=== PATIENT | male | born 1950 | race Hispanic/Latino ===

== ENCOUNTER 2020-11-03 12:30 | Observation (INO) | payer MEDICARE ==
[2020-11-03 13:25] LABS: Calcium 9.4 mg/dL (7.8-10.44); Chloride 103 mmol/L (98-107); Potassium 4.4 mmol/L (3.5-5.1); Sodium 138 mmol/L (136-145)
[2020-11-03] MEDS ORDERED: Nitroglycerin 0.4 MG TAB 1 EACH ONE (13:30)
[2020-11-03 13:36] LABS: Mean Corpuscular Hemoglobin 29.8 pg (27.0-33.0); Mean Corpuscular Volume 87.5 fl (81.2-95.1); Mean Platelet Volume 10.8 fl (7.4-10.4); Platelet Count 193 10x3/uL (150-450); RBC Distribution Width 12.7 % (11.5-14.5); Red Blood Cell (RBC) Count 5.04 10x6/uL (4.32-5.72)
[2020-11-03 13:37] LABS: #Eosinphils 0.1 10x3/uL (0.0-0.5); #Monocytes 0.5 10x3/uL (0.0-1.1); #Neutrophils 7.1 10x3/uL (1.5-8.4); %Basophils 0.3 % (0.0-2.0); %Eosinophils 0.7 % (0.0-6.0); %Lymphocytes 14.5 % (18.0-47.0); %Monocytes 5.2 % (0.0-10.0); %Neutrophils 78.7 % (40.0-75.0)
[2020-11-03 13:40] LABS: ALT (SGPT) 19 U/L (8-55); AST (SGOT) 19 U/L (5-34); Albumin 4.5 g/dL (3.4-4.8); Alkaline Phosphatase 57 U/L (40-110); BUN (Urea Nitrogen) 10 mg/dL (8.4-25.7); Bilirubin, Total 0.6 mg/dL (0.2-1.2); Calc. Creatinine Clearance 0 mL/min (70-130); Carbon Dioxide 24 mmol/L (23-31); Globulin 2.6 g/dL (2.4-3.5); Glucose 111 mg/dL (83-110); Lipase 22 U/L (8-78); Protein, Total 7.1 g/dL (5.8-8.1)
[2020-11-03 13:46] LABS: Anion Gap 15 mmol/L (10-20)
[2020-11-03] MEDS ORDERED: HYDROcodone/Acetaminophen 5/325 mg Tablet PO PRN (15:41)
[2020-11-03] MEDS ORDERED: Bisacodyl 5 MG TAB PO PRN (15:41)
[2020-11-03] MEDS ORDERED: Ondansetron PF 4 MG/2 ML Vial IVP PRN (15:41)
[2020-11-03 17:10] VITALS: BMI 29.6
[2020-11-03] MEDS: Acetaminophen 325 MG TAB PO PRN ×2 (17:39→23:01)
[2020-11-03 17:56] LABS: Troponin I Less than 0.010 ng/mL (< 0.028)
[2020-11-03 21:03] LABS: Troponin I Less than 0.010 ng/mL (< 0.028)
[2020-11-04 03:29] LABS: SARS-CoV-2 PCR by NAA Not Detected (NotDetected)
[2020-11-04 05:26] LABS: #Eosinphils 0.1 10x3/uL (0.0-0.5); #Monocytes 0.6 10x3/uL (0.0-1.1); #Neutrophils 4.9 10x3/uL (1.5-8.4); %Basophils 0.4 % (0.0-2.0); %Eosinophils 1.5 % (0.0-6.0); %Lymphocytes 28.8 % (18.0-47.0); %Monocytes 7.7 % (0.0-10.0); %Neutrophils 61.4 % (40.0-75.0); Hemoglobin 13.5 g/dL (13.5-17.5); Mean Corpuscular HGB CONC 33.7 g/dL (32.0-36.0); Mean Corpuscular Hemoglobin 30.4 pg (27.0-33.0); Mean Corpuscular Volume 90.3 fl (81.2-95.1); Mean Platelet Volume 10.3 fl (7.4-10.4); Platelet Count 192 10x3/uL (150-450); RBC Distribution Width 12.5 % (11.5-14.5); Red Blood Cell (RBC) Count 4.44 10x6/uL (4.32-5.72)
[2020-11-04 05:36] LABS: Anion Gap 11 mmol/L (10-20); BUN (Urea Nitrogen) 9 mg/dL (8.4-25.7); Calc. Creatinine Clearance 100 mL/min (70-130); Calcium 8.8 mg/dL (7.8-10.44); Carbon Dioxide 28 mmol/L (23-31); Chloride 101 mmol/L (98-107); Glucose 103 mg/dL (83-110); Sodium 136 mmol/L (136-145)
[2020-11-04] MEDS ORDERED: Enoxaparin Sodium 40 MG/0.4 ML SYRINGE SC SCH (09:00)
[2020-11-04 12:49] VITALS: BP 121/79; TEMP 98.1
== END 2020-11-04 13:10 | disposition home or self-care (01) ==
LOC: CSHERS 12:30 → CSHTELE 17:08
PROVIDERS: ADMIT Hospitalist; ATTEND Family Medicine
DX: R07.89 Other chest pain (principal); E78.5 Hyperlipidemia, unspecified; I25.10 Atherosclerotic heart disease of native coronary artery without angina pectoris; I11.9 Hypertensive heart disease without heart failure; Z79.899 Other long term (current) drug therapy; Z79.82 Long term (current) use of aspirin; Z95.1 Presence of aortocoronary bypass graft; Z95.5 Presence of coronary angioplasty implant and graft; E66.9 Obesity, unspecified; Z20.822 Contact with and (suspected) exposure to COVID-19
CPT/HCPCS: 71045; 80048; 80053; 82962; 83690; 84484 ×2; 85025 ×2; 93005 ×2; 94760; 96372; 99285; G0378 ×3; U0003; U0005; 36415; 36416; 87635; 93010; J1650